=== PATIENT | male | born 1970 | race Caucasian/White ===

== ENCOUNTER 2020-10-11 11:47 | Emergency (ER) | payer OTHER ==
[~2020-10-11] VITALS: Ht 170 cm; Wt 117.0 kg
[2020-10-11] MEDS ORDERED: ASPIRIN 81 MG CHEW (CHILDREN'S ASA) PO ONE (12:00)
[2020-10-11] MEDS ORDERED: ALPRAZolam 0.5 MG (XANAX) TAB PO SCH (12:00)
--- NOTE | 2020-10-11 12:01 | ED General ---
General Stated Complaint: CP,SOA Source of Information: Patient Exam Limitations: No Limitations History of Present Illness Date Seen by Provider: Oct 11, 2020 Time Seen by Provider: 11:58 Initial Comments To ER by private vehicle with reports of sudden onset of tension in the back of his neck and head, tingling in both of his hands. He developed some dizziness and lightheadedness.. He has hypertension and hypothyroidism and takes levothyroxine and Norvasc. He has no history of coronary disease, he states this may be related to anxiety. He is from [place], living with his parents here as he just from his . The symptoms began about 10 minutes prior to arrival Timing/Duration: 1/2 Hour Severity: Moderate Associated Systoms: No Chest Pain, No Cough; Headaches; No Shortness of Air; Weakness Allergies and Home Medications Allergies Uncoded Allergies: pcn (Adverse Reaction, Unknown, 10/11/20) Home Medications Alprazolam 0.5 Mg Tablet, 0.5 MG PO BID PRN for ANXIETY Prescribed by: HAIM SANCHEZ on 10/11/20 7527 Patient Home Medication List Home Medication List Reviewed: Yes Review of Systems Review of Systems Constitutional: see HPI EENTM: see HPI Respiratory: no symptoms reported Cardiovascular: no symptoms reported Genitourinary: no symptoms reported Musculoskeletal: no symptoms reported Skin: no symptoms reported Psychiatric/Neurological: See HPI, Anxiety Hematologic/Lymphatic: No Symptoms Reported Immunological/Allergic: no symptoms reported Physical Exam Vital Signs Vital Signs - First Documented 10/11/20 11:50 Temp 37.0 Pulse 93 Resp 16 B/P (MAP) 151/97 (115) Pulse Ox 96 O2 Delivery Room Air Capillary Refill : Height, Weight, BMI Height: '" Weight: lbs. oz. kg; BMI Method: General Appearance: No Apparent Distress, WD/WN, Anxious Eyes: Bilateral Eye Normal Inspection, Bilateral Eye PERRL, Bilateral Eye EOMI Neck: Full Range of Motion, Normal Inspection Respiratory: No Accessory Muscle Use, No Respiratory Distress Cardiovascular: Normal Peripheral Pulses, Tachycardia (Sinus rate of 105) Gastrointestinal: Normal Bowel Sounds, Non Tender, Soft Extremity: Normal Capillary Refill, Normal Inspection Neurologic/Psychiatric: Alert, Oriented x3 Skin: Normal Color, Warm/Dry Progress/Results/Core Measures Suspected Sepsis SIRS Temperature: Pulse: Respiratory Rate: Laboratory Tests 10/11/20 11:55: White Blood Count 5.7 Blood Pressure / Mean: Laboratory Tests 10/11/20 11:55: Creatinine 1.02, Platelet Count 254, Total Bilirubin 0.5 Results/Orders Lab Results Laboratory Tests Test 10/11/20 11:55 10/11/20 13:57 Range/Units White Blood Count 5.7 4.3-11.0 10^3/uL Red Blood Count 5.18 4.30-5.52 10^6/uL Hemoglobin 15.9 13.3-17.7 g/dL Hematocrit 45 40-54 % Mean Corpuscular Volume 87 80-99 fL Mean Corpuscular Hemoglobin 31 25-34 pg Mean Corpuscular Hemoglobin Concent 35 32-36 g/dL Red Cell Distribution Width 12.3 10.0-14.5 % Platelet Count 254 130-400 10^3/uL Mean Platelet Volume 9.5 9.0-12.2 fL Immature Granulocyte % (Auto) 1 % Neutrophils (%) (Auto) 49 42-75 % Lymphocytes (%) (Auto) 43 12-44 % Monocytes (%) (Auto) 7 0-12 % Eosinophils (%) (Auto) 1 0-10 % Basophils (%) (Auto) 1 0-10 % Neutrophils # (Auto) 2.8 1.8-7.8 10^3/uL Lymphocytes # (Auto) 2.5 1.0-4.0 10^3/uL Monocytes # (Auto) 0.4 0.0-1.0 10^3/uL Eosinophils # (Auto) 0.0 0.0-0.3 10^3/uL Basophils # (Auto) 0.0 0.0-0.1 10^3/uL Immature Granulocyte # (Auto) 0.0 0.0-0.1 10^3/uL Sodium Level 137 135-145 MMOL/L Potassium Level 4.3 3.6-5.0 MMOL/L Chloride Level 105 98-107 MMOL/L Carbon Dioxide Level 21 21-32 MMOL/L Anion Gap 11 5-14 MMOL/L Blood Urea Nitrogen 11 7-18 MG/DL Creatinine 1.02 0.60-1.30 MG/DL Estimat Glomerular Filtration Rate > 60 BUN/Creatinine Ratio 11 Glucose Level 135 H 70-105 MG/DL Calcium Level 9.0 8.5-10.1 MG/DL Corrected Calcium 8.6 8.5-10.1 MG/DL Total Bilirubin 0.5 0.1-1.0 MG/DL Aspartate Amino Transf (AST/SGOT) 28 5-34 U/L Alanine Aminotransferase (ALT/SGPT) 25 0-55 U/L Alkaline Phosphatase 64 40-136 U/L Troponin I < 0.028 < 0.028 <0.028 NG/ML Total Protein 8.0 6.4-8.2 GM/DL Albumin 4.5 3.2-4.5 GM/DL Thyroid Stimulating Hormone (TSH) 1.28 0.35-4.94 UIU/ML Free Thyroxine 1.16 0.70-1.48 NG/DL My Orders Orders - HAIM SANCHEZ APRN Cbc With Automated Diff (10/11/20 11:56) Comprehensive Metabolic Panel (10/11/20 11:56) Thyroid Stimulating Hormone (10/11/20 11:56) Free T4 (Free Thyroxine) (10/11/20 11:56) Ekg Tracing (10/11/20 11:56) Troponin I (10/11/20 11:56) Chest 1 View, Ap/Pa Only (10/11/20 11:56) Alprazolam Tablet (Xanax Tablet) (10/11/20 12:00) Aspirin Chewable Tablet (Baby Aspirin Ch (10/11/20 12:00) Troponin I (10/11/20 13:53) Medications Given in ED Current Medications Medications Dose Ordered Sig/Luh Route Start Time Stop Time Status Last Admin Dose Admin Aspirin 324 mg ONCE ONCE PO 10/11/20 12:00 10/11/20 12:01 DC 10/11/20 12:12 324 MG Vital Signs/I&O 10/11/20 10/11/20 11:50 14:41 Temp 37.0 Pulse 93 80 Resp 16 18 B/P (MAP) 151/97 (115) 128/84 Pulse Ox 96 98 O2 Delivery Room Air Room Air Capillary Refill : Departure Communication (Admissions) 1438-Still asymptomatic after xanax. Repeat troponin negative. Will dc to home. Impression Primary Impression: Chest pain Additional Impression: Anxiety Disposition: 01 HOME, SELF-CARE Condition: Stable Departure-Patient Inst. Decision time for Depature: 14:26 Patient Instructions: Anxiety, Adult (DC) Add. Discharge Instructions: 1. Follow-up with your primary care provider or a primary care provider within the next few weeks. Use the Xanax as needed to help with stress and anxiety. Be aware this can be addicting so do not use it any more than necessary. A long-term daily pill that is nonaddicting may be a better option for you and can be discussed with primary care. Scripts Alprazolam (Xanax) 0.5 Mg Tablet 0.5 MG PO BID PRN for ANXIETY, #10 TAB Prov: HAIM SANCHEZ APRN 10/11/20 HAIM SANCHEZ APRN Oct 11, 2020 12:01
[2020-10-11 12:09] LABS: BASOPHILS % (AUTO) 1 % (0-10); EOSINOPHILS % (AUTO) 1 % (0-10); HEMATOCRIT 45 % (40-54); HEMOGLOBIN 15.9 g/dL (13.3-17.7); LYMPHOCYTES # (AUTO) 2.5 10^3/uL (1.0-4.0); LYMPHOCYTES % (AUTO) 43 % (12-44); MEAN CORPUSCULAR HEMOGLOBIN 31 pg (25-34); MEAN CORPUSCULAR HGB CONC 35 g/dL (32-36); MEAN CORPUSCULAR VOLUME 87 fL (80-99); MEAN PLATELET VOLUME 9.5 fL (9.0-12.2); MONOCYTES # (AUTO) 0.4 10^3/uL (0.0-1.0); MONOCYTES % (AUTO) 7 % (0-12); NEUTROPHILS # (AUTO) 2.8 10^3/uL (1.8-7.8); NEUTROPHILS % (AUTO) 49 % (42-75); PLATELET COUNT 254 10^3/uL (130-400); WHITE BLOOD COUNT 5.7 10^3/uL (4.3-11.0)
[2020-10-11] MEDS ORDERED: LEVO50TA (12:10)
[2020-10-11] MEDS ORDERED: AMLO-251 (12:10)
[2020-10-11 12:17] LABS: ALBUMIN 4.5 GM/DL (3.2-4.5)
[2020-10-11 12:18] LABS: CHLORIDE 105 MMOL/L (98-107); POTASSIUM 4.3 MMOL/L (3.6-5.0); SODIUM 137 MMOL/L (135-145)
[2020-10-11 12:20] LABS: GLUCOSE 135 MG/DL (70-105)
[2020-10-11 12:21] LABS: CARBON DIOXIDE 21 MMOL/L (21-32)
[2020-10-11 12:22] LABS: BILIRUBIN,TOTAL 0.5 MG/DL (0.1-1.0)
[2020-10-11 12:23] LABS: ALKALINE PHOSPHATASE 64 U/L (40-136)
[2020-10-11 12:24] LABS: CREATININE SERUM 1.02 MG/DL (0.60-1.30); GFR ESTIMATED > 60
[2020-10-11 12:25] LABS: BUN/CREATININE RATIO 11
[2020-10-11 12:26] LABS: ALANINE AMINOTRANSFERASE 25 U/L (0-55)
--- NOTE | 2020-10-11 12:26 | Diagnostic Imaging Report ---
INDICATION: Neck and chest pain. TECHNIQUE: Frontal chest obtained at 12:06 p.m. FINDINGS: Heart and mediastinal silhouette are normal in appearance. The lungs are clear. There is no pneumothorax or pleural fluid. IMPRESSION: Negative chest. Dictated by: Dictated on workstation # [id number]
[2020-10-11 12:47] LABS: FREE T4 (FREE THYROXINE) 1.16 NG/DL (0.70-1.48)
--- NOTE | 2020-10-11 13:15 | NUR ---
RESTING IN BED ET DENIES NEEDS AT THIS TIME. STATES HE IS FEELING BETTER.
--- NOTE | 2020-10-11 14:00 | NUR ---
DENIES NEEDS AT THIS TIME.
[2020-10-11] MEDS ORDERED: ALPR0.5T PO (14:27)
[2020-10-11 14:41] VITALS: BP 128/84
== END 2020-10-11 14:41 | disposition home or self-care (01) ==
LOC: EDUNIT# 11:47 → ER 11:49
DX: R07.9 Chest pain, unspecified (principal); F41.9 Anxiety disorder, unspecified; I10 Essential (primary) hypertension; E03.9 Hypothyroidism, unspecified; Z88.0 Allergy status to penicillin; Z79.890 Hormone replacement therapy
CPT/HCPCS: 36415; 71045; 80053; 84439; 84443; 84484; 85025; 93005

== ENCOUNTER → 2022-03-13 | Outpatient (CLI) | payer OTHER ==
[~2022-03-13] MED LIST: ALPR0.5T PO; AMLO-251; LEVO50TA
== END ==
LOC: LAB 14:38
PROVIDERS: ATTEND Family Medicine
DX: E78.5 Hyperlipidemia, unspecified (principal); R94.39 Abnormal result of other cardiovascular function study
CPT/HCPCS: 36415; 86141